=== PATIENT | female | born 1975 | race Caucasian/White ===

== ENCOUNTER 2016-07-31 11:56 | Emergency (ER) | payer OTHER ==
[2016-07-31 14:49] VITALS: BP 118/55
--- NOTE | 2016-07-31 15:51 | UC ---
Ear Complaint HPI - HPI Summary HPI Summary: Acute L ear pain starting 2 mornings ago with foul drainage. Has had drainage before with "sinus problems," but never this much pain. No hx of ear surgeries. Has had URI sx in the last several days. - History of Current Complaint Chief Complaint: UCEar Stated Complaint: EAR PAIN Time Seen by Provider: 07/31/16 15:05 Hx Obtained From: Patient Hx Last Menstrual Period: [address]UD IN [address] ?: No Onset/Duration: Gradual Onset, Lasting Days Severity Initially: Moderate Severity Currently: Moderate Pain Intensity: 4 Pain Scale Used: 0-10 Numeric Alleviating Factors: OTC Meds Associated Signs/Symptoms: Positive: Discharge, Hearing Loss, URI Symptoms - Allergies/Home Medications Allergies/Adverse Reactions: Allergies Allergy/AdvReac Type Severity Reaction Status Date / Time Amoxicillin Allergy Intermediate GI Upset Verified 07/31/16 14:42 Erythromycin Allergy Intermediate GI Upset Verified 07/31/16 14:42 Penicillins Allergy Intermediate GI Upset Verified 07/31/16 14:42 Sulfa Antibiotics Allergy Intermediate GI Upset Verified 07/31/16 14:41 Home Medications: Home Medications Fluticasone NASAL SPRAY 50MCG* [Flonase NASAL SPRAY 50MCG*] 1 inh NASAL BID PRN 07/31/16 [History Confirmed 07/31/16] Ibuprofen TAB* [Advil TAB*] 4 tab PO TID MDD PAIN 07/31/16 [History Confirmed ] Pseudoephedrine-Guaifenesin [Mucinex D 60-600 mg] 1 tab PO QID PRN 07/31/16 [ History Confirmed 07/31/16] Sodium Chloride-Sodium Bicarbo [Neti Pot Kit Sinus Wash/C 2300-700 mg] 1 applic NASAL TID PRN 07/31/16 [History Confirmed 07/31/16] PMH/Surg Hx/FS Hx/Imm Hx Previously Healthy: Yes Endocrine History Of: Denies: Diabetes, Thyroid Disease Cardiovascular History Of: Denies: Cardiac Disorders, Hypertension Respiratory History Of: Denies: COPD, Asthma GI/ History Of: Denies: Ulcer - Surgical History Surgical History: Yes Surgery Procedure, Year, and Place: 2011 - Family History Known Family History: Negative: Blood Disorder - Social History Occupation: Employed Part-time Lives: With Family Alcohol Use: Weekly Substance Use Type: None Smoking Status (MU): Never Smoked Tobacco Review of Systems Constitutional: Negative Skin: Negative Eyes: Negative ENT: Ear Ache, Other - L ear discharge Respiratory: Negative Cardiovascular: Negative Gastrointestinal: Negative Genitourinary: Negative Motor: Negative Neurovascular: Negative Musculoskeletal: Negative Neurological: Negative Psychological: Negative All Other Systems Reviewed And Are Negative: Yes Physical Exam Triage Information Reviewed: Yes Appearance: Well-Appearing, No Pain Distress, Well-Nourished Vital Signs: Initial Vital Signs Temp 98.4 F 07/31/16 14:45 Pulse 97 07/31/16 14:45 Resp 16 07/31/16 14:45 BP 118/55 07/31/16 14:45 Pulse Ox 100 07/31/16 14:45 Vital Signs Reviewed: Yes Eye Exam: Normal Eyes: Positive: Conjunctiva Clear ENT: Positive: Hearing grossly normal, Pharynx normal, TMs normal - R TM, Other : - Unable to see L TM due to discharge. No tragal tenderness or swelling in the canal Dental Exam: Normal Neck exam: Normal Neck: Positive: Supple, Nontender, No Lymphadenopathy Respiratory Exam: Normal Respiratory: Positive: Chest non-tender, Lungs clear, Normal breath sounds, No respiratory distress, No accessory muscle use Cardiovascular Exam: Normal Cardiovascular: Positive: RRR, No Murmur Musculoskeletal Exam: Normal Neurological Exam: Normal Neurological: Positive: Alert Psychological Exam: Normal Skin Exam: Normal Ear Complaint Course/Dx - Differential Dx/Diagnosis Provider Diagnoses: L AOM with TM rupture Discharge - Discharge Plan Condition: Stable Disposition: HOME Prescriptions: Acetaminop/Codeine 30 MG TAB* [Tylenol/Codeine 30 MG TAB*] 1 - 2 tab PO BEDTIME PRN #4 tab MDD 2 PRN Reason: Pain Ciprofloxacin HCl [Cipro 500 MG TAB] 500 mg PO BID #10 tab Ofloxacin (Otic) [Floxin Otic] 10 drop LEFT EAR BID #10 ml Patient Education Materials: Otitis Media (ED), Ruptured Eardrum (ED) Referrals: Dante Page MD [Medical Doctor] - 08/10/16 Additional Instructions: I have prescribed a short course of oral antibiotics to help with your more acute symptoms, but use the drops until you see Dr. Page's office. If you are still having trouble with pain control tomorrow, get me a message here (I work at noon).
== END 2016-07-31 15:35 | disposition home or self-care (01) ==
LOC: UCEAST 11:56
DX: H66.92 Otitis media, unspecified, left ear (principal); H72.92 Unspecified perforation of tympanic membrane, left ear; Z88.1 Allergy status to other antibiotic agents; Z88.0 Allergy status to penicillin; Z88.2 Allergy status to sulfonamides
CPT/HCPCS: 99212; G0463